=== PATIENT | male | born 1960 | race Caucasian/White ===

== ENCOUNTER 2023-06-04 11:57 | Emergency (ER) | payer BC, SELFPAY ==
[2023-06-04] VITALS (13 sets, daily range): BP systolic 131–150; BP diastolic 76–93; PULSE 79–94; RESP 13–20; TEMP 36.4–37.1; O2SAT 97–100
--- NOTE | ~2023-06-04 | US_ITS ---
EXAMINATION:US venous doppler LE RT INDICATION:Swelling right lower extremity TECHNIQUE: Multiple grayscale, color flow and Doppler images of the right lower extremity deep venous systems were obtained and reviewed. COMPARISON:No prior studies for comparison. FINDINGS: There is deep venous thrombosis of the right popliteal, posterior tibial and gastrocnemius veins. Remainder of the right lower extremity veins are patent. IMPRESSION: 1: Deep venous thrombosis of the right popliteal, posterior tibial and gastrocnemius veins. Reviewed, dictated and finalized at location L. IMPRESSION: 1: Deep venous thrombosis of the right popliteal, posterior tibial and gastrocn emius veins.
--- NOTE | 2023-06-04 14:06 | ED.GENADULT ---
HPI - General Adult General Chief complaint: Extremity Problem,Nontraumatic Stated complaint: R leg swelling Time Seen by Provider: 06/04/23 13:41 Source: patient Mode of arrival: ambulatory Limitations: no limitations History of Present Illness HPI narrative: This is a 62-year-old male who presents to the ED with chief complaint of right lower extremity pain and swelling ongoing for the past 3 months and worse in the past couple of days. He reports pain is primarily through the posterior calf and up into the posterior knee and thigh. Reports it is certainly worse over the past couple of days. 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 He does not sit for long periods of time. Denies any overt skin changes or discoloration. Denies fevers, chills, chest pain, shortness of breath, palpitations, syncope. Denies any past medical history. Denies DVT history. Related Data Allergies Allergy/AdvReac Type Severity Reaction Status Date / Time Penicillins Allergy Unknown Verified 06/04/23 12:44 Review of Systems Review of Systems: All systems as dictated in HPI Exam Narrative: GENERAL: Well-appearing, well-nourished, and in no acute distress. HEAD: Normocephalic, atraumatic. EYES: PERRLA and EOMI. ENT: Nares clear, no rhinorrhea or epistaxis. Mucous membranes moist. Oropharynx without tonsillar hypertrophy exudate or other lesions. NECK: Supple. No adenopathy or masses. CHEST: No respiratory distress. Clear to auscultation. No wheezes rales or rhonchi HEART: Regular rate and rhythm. No murmur heard. Normal peripheral pulses. ABDOMEN: Soft, nontender, nondistended, normal active bowel sounds. MSK: RLE: Significant edema from ankle to knee. Mild tenderness posteriorly through the calf and posterior thigh area. Pulses intact. LLE: No edema. Benign SKIN: Warm, dry, no rash. No pallor or erythema NEURO: Alert and oriented x3. No focal deficits. PSYCH: Normal mood and affect. Course Course Emergency Course: Consult 3068: Spoke with Dr. Mills ([facility]) who will see the patient for follow-up this week. He is good with starting on Eliquis now. Vital Signs Vital signs: Vital Signs Temperature 97.9 F 06/04/23 12:03 Pulse Rate 94 06/04/23 12:03 Respiratory Rate 16 06/04/23 12:03 Blood Pressure 149/80 H 06/04/23 12:03 Pulse Oximetry 100 06/04/23 12:03 Oxygen Delivery Room Air 06/04/23 12:03 Temperature 97.6 F 06/04/23 17:25 Pulse Rate 84 06/04/23 17:25 Respiratory Rate 16 06/04/23 17:25 Blood Pressure 144/81 H 06/04/23 17:25 Pulse Oximetry 99 06/04/23 17:25 Oxygen Delivery Room Air 06/04/23 12:03 Medical Decision Making MDM Narrative Medical decision making narrative: This is a 62-year-old male who presents to the ED with chief complaint of right lower extremity swelling and pain for the past couple of days. Vitals are normal. Exam shows significant edema on the right compared to left. Ultrasound reveals evidence of DVT. Blood work incidentally shows a CBC with a hemoglobin of 6.1 critically low. He is asymptomatic with this. Not having any GI bleeding symptoms. His platelets are intact. PT/INR as well as BMP are intact as well. Type and screen ordered and patient was given a unit of blood. I discussed that he should stay in the hospital. He would like to go home. His first dose of Eliquis will be given tonight. He was given 1 unit of packed red blood cells here. This patient has elected to leave against medical advice. In my opinion, the patient has capacity to leave AMA. The patient is clinically sober, free from distracting injury, appears to have intact insight and judgment and reason, and in my opinion has capacity to make decisions. I explained to the patient that he will have to start blood thinners for the blood clots but this puts him at significant increased risk for bleeding. This ri
[2023-06-04 14:10] LABS: Basophils Absolute Auto 0.1 K/mm3 (0.0-0.1); Basophils Percent Auto 0.8 % (0.2-1.2); Eosinophils Absolute Auto 0.1 K/mm3 (0-0.3); Hematocrit 24.1 % (42.0-52.0); Immature Granulocyte Absolute 0.02 K/mm3 (0.00-0.031); Immature Granulocyte Percent A 0.2 % (0-0.5); Lymphocytes Absolute Auto 1.34 K/mm3 (0.9-3.2); Lymphocytes Percent Auto 16.2 % (18.3-44.2); Mean Corpuscular HGB Conc 25.3 g/dl (32-36); Mean Corpuscular Hemoglobin 17.7 pg (26-34); Mean Corpuscular Volume 69.9 fl (80-100); Mean Platelet Volume 8.3 fl (7.4-10.4); Monocytes Absolute Auto 0.8 K/mm3 (0.1-0.6); Monocytes Percent Auto 9.1 % (2.6-8.5); Neutrophils Percent Auto 72.7 % (45.5-73.1); Platelet Count Result 283 k/mm3 (150-375); Red Blood Count 3.45 M/mm3 (4.6-6.20); White Blood Count 8.3 K/mm3 (4.5-10.0)
[2023-06-04 14:19] LABS: Anion Gap 7 mmol/L (8-16); Blood Urea Nitrogen 20 mg/dL (9-20); Calcium 8.5 mg/dL (8.4-10.2); Carbon Dioxide 28 mmol/L (22-30); Chloride 101 mmol/L (98-107); Estimated CRCL calculation 49 ml/min; Estimated Glomerular Filt Rate 52; Glucose 92 mg/dL (65-110); Potassium 4.7 mmol/L (3.4-5.0); Sodium 136 mmol/L (137-145)
[2023-06-04 14:26] LABS: INR 1.1; Prothrombin Time 14.3 Seconds (11.1-14.7)
[2023-06-04 14:27] LABS: Partial Thromboplastin Time 35.1 SECONDS (22.3-36.8)
[2023-06-04 14:30] LABS: Hemoglobin 6.1 g/dL (14.0-18.0)
[2023-06-04 14:33] LABS: Anisocytosis 1+ (NORMAL); Platelet Estimate Adequate (Adequate)
[2023-06-04 14:34] LABS: Hypochromasia 2+ (NORMAL); Macrocytosis 1+ (NORMAL); Ovalocytes 1+ (NORMAL); Target Cells 1+ (NORMAL)
[2023-06-04 14:35] LABS: Microcytosis 1+ (NORMAL); Schistocytes None Seen (NORMAL); Tear Drop Cells 1+ (NORMAL)
[2023-06-04 15:24] LABS: Hematocrit 23.2 % (42.0-52.0)
[2023-06-04] MEDS: SODIUM CHLORIDE 0.9% IV 250 ML 30 ML IV CONT (17:05)
[2023-06-04] MEDS: APIXABAN 5 MG TABLET 10 MG PO (20:35)
== END 2023-06-04 20:40 | disposition left against medical advice (07) ==
PROVIDERS: Emergency Provider Physician Assistant
DX: I82.431 Acute embolism and thrombosis of right popliteal vein (principal); I82.441 Acute embolism and thrombosis of right tibial vein; I82.461 Acute embolism and thrombosis of right calf muscular vein
CPT/HCPCS: 36415; 36430; 80048; 85014; 85018; 85025; 85610; 85730; 86850; 86900; 86901; 86923; 93971; 96360; 96361; 99285; A9270; J7050; P9016

== ENCOUNTER 2023-06-07 15:26 | Outpatient (CLI) | payer BC, SELFPAY ==
[2023-06-07 16:30] LABS: Iron 18 ug/dL (49-181); Lactate Dehydrogenase 192 U/L (120-246)
[2023-06-07 16:40] LABS: Percent Iron Saturation 4 % (20-50)
[2023-06-07 17:07] LABS: Ferritin 7.26 ng/mL (11.1-264)
[2023-06-12 17:45] LABS: Soluble Transferrin Receptor 5.66 mg/L (0.76-1.76)
== END 2023-06-07 15:27 | disposition home or self-care (01) ==
PROVIDERS: PCP Emergency Medicine; Visit Provider Internal Medicine Hematology & Oncology
DX: D64.9 Anemia, unspecified (principal)
CPT/HCPCS: 36415; 82607; 82728; 82746; 83540; 83550; 83615; 84238

== ENCOUNTER 2023-06-13 07:23 | Outpatient (CLI) | payer BC, SELFPAY ==
--- NOTE | ~2023-06-13 | CT_ITS ---
CT of the Abdomen and Pelvis: Indication: Difficulty in urination Technique: 2.5 mm axial scans were obtained through the abdomen and pelvis following intravenous adm inistration of 100 cc of Omnipaque 350. Dose reduction technique was used on this scan by utilizing a utomated exposure control and iterative reconstruction technique. The dose-length product (DLP) was 4 53.86 mGy-cm. Findings: Scans through the lung bases demonstrate large hiatal hernia, containing essentially the e ntire stomach, with organoaxial volvulus.. The liver, spleen, pancreas, gallbladder, adrenals and kidneys are within normal limits. No evidence of aortic aneurysm. No lymphadenopathy. No bowel obstruction or bowel wall thickening. There is no evidence to suggest acute appendicitis. Images through the pelvis were performed. Urinary bladder unremarkable. Prostate gland and seminal ve sicles are unremarkable. Moderate degenerative spondylosis of the lumbar spine noted. Impression: No significant abnormality of the system identified. Large hiatal hernia containing the entire stomach, with organoaxial volvulus. Reviewed, dictated and finalized at location . Impression: No significant abnormality of the system identified. Large hiatal hernia containing the entire stomach, with organoaxial volvulus.
== END 2023-06-13 07:24 | disposition home or self-care (01) ==
PROVIDERS: PCP Emergency Medicine; Visit Provider Internal Medicine Hematology & Oncology
DX: R39.198 Other difficulties with micturition (principal); K44.9 Diaphragmatic hernia without obstruction or gangrene
CPT/HCPCS: 74177; Q9967

== ENCOUNTER 2023-08-06 15:40 | Outpatient (CLI) | payer BC, SELFPAY ==
--- NOTE | ~2023-08-06 | US_ITS ---
EXAMINATION: US venous doppler LE RT DATE: 08/06/2023 16:07 INDICATION: ACUTE DEEP VEIN THROMBOSIS . TECHNIQUE: Grayscale images without and with compression and Doppler images of the right lower extrem ity veins were obtained. COMPARISON: 06/04/2023. FINDINGS: Subacute noncompressible occlusive thrombus in the right gastrocnemius and right popliteal veins, ves major diameter best dilated than prior. The right common femoral vein, profunda (deep) femoral vein, fe moral vein,, peroneal vein, posterior tibial veins, and greater saphenous vein are patent. IMPRESSION: Subacute DVT in the right gastrocnemius and popliteal veins. Reviewed, dictated and finalized at location K. GAGE ORIGINATOR
== END 2023-08-06 15:41 | disposition home or self-care (01) ==
PROVIDERS: PCP Emergency Medicine; Visit Provider Internal Medicine Hematology & Oncology
DX: I82.4Y1 Acute embolism and thrombosis of unspecified deep veins of right proximal lower extremity (principal)
CPT/HCPCS: 93971

== ENCOUNTER 2023-11-08 08:26 | Outpatient (CLI) | payer BC, SELFPAY ==
--- NOTE | ~2023-11-08 | US_ITS ---
NAME: Tal Alston DATE OF : 64 EXAMINATION: US VENOUS DOPPLER LE RT DATE: 11/08/23 at 9:18 AM INDICATION: Acute deep vein thrombosis of proximal vein. TECHNIQUE: Grayscale ultrasound images without and with compression and Doppler ultrasound images of the right lower extremity veins were obtained. COMPARISON: Ultrasound 08/06/2023 FINDINGS: The visualized portions of right common femoral vein, profunda (deep) femoral vein, femoral vein, per mcnamara veins, posterior tibial veins, and greater saphenous vein outflow are patent. Again seen is thr ombus in right popliteal and gastrocnemius veins. IMPRESSION: 1. Chronic deep vein thrombosis involving right popliteal and gastrocnemius veins. Reviewed, dictated and finalized at location A. IMPRESSION: 1. Chronic deep vein thrombosis involving right popliteal and gastrocnemius ve ins.
== END 2023-11-08 08:27 | disposition home or self-care (01) ==
PROVIDERS: PCP Emergency Medicine; Visit Provider Internal Medicine Hematology & Oncology
DX: I82.4Y1 Acute embolism and thrombosis of unspecified deep veins of right proximal lower extremity (principal); I82.531 Chronic embolism and thrombosis of right popliteal vein; I82.561 Chronic embolism and thrombosis of right calf muscular vein
CPT/HCPCS: 93971

== ENCOUNTER 2024-02-24 12:18 | Outpatient (CLI) | payer BC, MEDICAID, SELFPAY ==
--- NOTE | ~2024-02-24 | US_ITS ---
EXAMINATION: US venous doppler LE RT DATE: 02/24/2024 12:59 INDICATION: Acute deep vein thrombosis of right lower limb. TECHNIQUE: Grayscale ultrasound images without and with compression and Doppler ultrasound images of the right lower extremity veins were obtained. COMPARISON: Ultrasound 11/08/2023 FINDINGS: The visualized portions of right common femoral vein, profunda (deep) femoral vein, femoral vein, per mcnamara veins, posterior tibial veins, and greater saphenous vein outflow are patent. There is thrombus in right popliteal vein in right lesser saphenous vein. IMPRESSION: 1. Chronic deep vein thrombosis involving right popliteal vein. 2. Superficial vein thrombosis involving right lesser saphenous vein. Reviewed, dictated and finalized at location A.
== END 2024-02-24 12:19 | disposition home or self-care (01) ==
LOC: ANHIMG 12:24
PROVIDERS: PCP Emergency Medicine; Visit Provider Internal Medicine Hematology & Oncology
DX: I82.431 Acute embolism and thrombosis of right popliteal vein (principal); I82.811 Embolism and thrombosis of superficial veins of right lower extremity
CPT/HCPCS: 93971

== ENCOUNTER 2024-05-29 11:26 | Outpatient (CLI) | payer BC, MEDICAID, SELFPAY ==
[2024-05-29 11:51] LABS: Basophils Percent Auto 0.7 % (0.2-1.2); Eosinophils Absolute Auto 0.1 K/mm3 (0-0.3); Eosinophils Percent Auto 3.1 % (0-4.4); Hematocrit 48.4 % (42.0-52.0); Hemoglobin 16.9 g/dL (14.0-18.0); Immature Granulocyte Absolute 0.01 K/mm3 (0.00-0.031); Immature Granulocyte Percent A 0.2 % (0-0.5); Lymphocytes Absolute Auto 1.32 K/mm3 (0.9-3.2); Lymphocytes Percent Auto 29.3 % (18.3-44.2); Mean Corpuscular HGB Conc 34.9 g/dl (32-36); Mean Corpuscular Hemoglobin 31.5 pg (26-34); Mean Corpuscular Volume 90.1 fl (80-100); Mean Platelet Volume 9.6 fl (7.4-10.4); Monocytes Absolute Auto 0.6 K/mm3 (0.1-0.6); Monocytes Percent Auto 12.2 % (2.6-8.5); Neutrophils Absolute Auto 2.5 K/mm3 (1.3-6.7); Neutrophils Percent Auto 54.5 % (45.5-73.1); Platelet Count Result 224 k/mm3 (150-375); Red Blood Count 5.37 M/mm3 (4.6-6.20); Red Cell Distribution Width 12.3 % (11.5-14.5); White Blood Count 4.5 K/mm3 (4.5-10.0)
[2024-05-29 13:34] LABS: Iron 134 ug/dL (49-181)
[2024-05-29 13:43] LABS: Percent Iron Saturation 43 % (20-50)
== END 2024-05-29 11:27 | disposition home or self-care (01) ==
LOC: ANHLAB 11:28
PROVIDERS: PCP Emergency Medicine; Visit Provider Internal Medicine Hematology & Oncology
DX: D64.9 Anemia, unspecified (principal)
CPT/HCPCS: 36415; 82728; 83540; 83550; 85025

== ENCOUNTER 2024-06-08 12:19 | Outpatient (CLI) | payer BC, MEDICAID, SELFPAY ==
--- NOTE | ~2024-06-08 | US_ITS ---
RIGHT LOWER EXTREMITY VENOUS ULTRASOUND Ordering provider: Mahesh Shah History: . ACUTE DEEP VEIN THROMBOSIS . Comparison: February 24, 2024 FINDINGS: --COMMON FEMORAL: Patent and free of thrombus. Normal compressibility, phasic flow and augmentation. --PROXIMAL SUPERFICIAL FEMORAL: Patent and free of thrombus. Normal compressibility, phasic flow and augmentation. --DISTAL SUPERFICIAL FEMORAL: Patent and free of thrombus. Normal compressibility, phasic flow and au gmentation. --POPLITEAL: Thrombosis is seen . --POSTERIOR TIBIAL: Patent and free of thrombus. Normal compressibility, phasic flow and augmentation . IMPRESSION: Thrombosis in the popliteal vein unchanged from previous examination. Reviewed, dictated and finalized at location A.
== END 2024-06-08 12:20 | disposition home or self-care (01) ==
PROVIDERS: PCP Nurse Practitioner Family; Visit Provider Internal Medicine Hematology & Oncology
DX: I82.431 Acute embolism and thrombosis of right popliteal vein (principal)
CPT/HCPCS: 93971

== ENCOUNTER 2024-07-03 10:02 | Outpatient (CLI) | payer BC, MEDICAID, SELFPAY ==
[2024-07-03 13:47] LABS: Alanine Aminotransferase 38 U/L (6-50); Albumin Level 4.3 g/dL (3.5-5.1); Alkaline Phosphatase 70 U/L (38-126); Anion Gap 6 mmol/L (4-12); Aspartate Amino Transferase 49 U/L (17-59); Bilirubin,Total 0.7 mg/dL (0.2-1.3); Blood Urea Nitrogen 17 mg/dL (9-20); Calcium 8.9 mg/dL (8.4-10.2); Carbon Dioxide 32 mmol/L (22-30); Chloride 98 mmol/L (98-107); Estimated Glomerular Filt Rate > 60; Glucose 67 mg/dL (65-110); Potassium 4.3 mmol/L (3.4-5.0); Sodium 136 mmol/L (137-145)
== END 2024-07-03 10:03 | disposition home or self-care (01) ==
LOC: ANHLAB 10:03
PROVIDERS: PCP Nurse Practitioner Family; Visit Provider Internal Medicine Hematology & Oncology
DX: B35.1 Tinea unguium (principal)
CPT/HCPCS: 36415; 80053